=== PATIENT | female | born 1960 | race Two or more races ===

== ENCOUNTER 2024-07-29 08:48 | Day surgery (SDC) | payer MEDICAID, SELFPAY ==
--- NOTE | 2024-07-28 06:49 | EKG_ITS ---
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
[2024-07-28 08:31] VITALS: BMI 33.3
[2024-07-28 10:19] LABS: Basophils % (Auto) 1 % (0-2.5); Eosinophils # (Auto) 0.1 Thou/mm3 (0.0-0.5); Eosinophils % (Auto) 3 % (0-10); Hematocrit 41.4 % (36.0-46.0); Hemoglobin 13.7 g/dL (12.0-16.0); Immature Granulocytes % (Auto) 0 % (0-0); Immature Granulocytes Auto 0.01 Thou/mm3 (0.00-0.00); Lymphocytes # (Auto) 1.9 Thou/mm3 (1.0-4.8); Lymphocytes % (Auto) 37 % (10-50); Mean Corpuscular HGB Conc 33.1 g/dl (31.0-37.0); Mean Corpuscular Hemoglobin 30.4 pg (25.0-35.0); Mean Corpuscular Volume 92 fL (80-100); Monocytes # (Auto) 0.4 Thou/mm3 (0.0-0.8); Monocytes % (Auto) 8 % (0-12); Neutrophils # (Auto) 2.7 Thou/mm3 (1.8-7.7); Neutrophils % (Auto) 51 % (37-80); Nucleated Red Blood Cell % 0 /100 WBC (0); Platelet Count 220 Thou/mm3 (140-440); RDW Standard Deviation 45.5 fL (36.4-46.3); Red Blood Count 4.51 Miln/mm3 (4.00-5.20); White Blood Count 5.2 Thou/mm3 (3.6-11.0)
[2024-07-28 10:27] LABS: Alanine Aminotransferase 156 U/L (10-49); Albumin, Serum 4.2 gm/dL (3.4-4.8); Albumin/Globulin Ratio 1.6 (1.2-2.2); Alkaline Phosphatase 77 U/L (46-116); Anion Gap 6 (7-16); Aspartate Amino Transferase 76 U/L (0-34); BUN/Creatinine Ratio 10 Ratio (12-20); Bilirubin,Total 0.8 mg/dL (0.3-1.2); Blood Urea Nitrogen 8 mg/dL (9-23); Calcium 9.1 mg/dL (8.3-10.6); Calcium (Corrected) 9.1 mg/dL (8.5-10.1); Carbon Dioxide 28.8 mMol/L (20.0-31.0); Chloride 106 mMol/L (98-107); Creatinine (Component) 0.8 mg/dL (0.6-1.3); Estimated Creatinine Clearance 67.1 mL/min (>60); Globulin 2.6 gm/dL (2.3-3.5); Glucose 93 mg/dL (74-106); Osmolality,Calculated 279 (275-295); Partial Thromboplastin Time 26.8 Seconds (22.0-36.0); Potassium 4.2 mMol/L (3.4-5.1); Sodium 141 mMol/L (136-145); Total Protein 6.8 gm/dL (5.7-8.2); eGFR > 60 See Note
[2024-07-29] VITALS (8 sets, daily range): BP systolic 139–173; BP diastolic 68–92; PULSE 57–63; RESP 14–20; TEMP 36.3–36.8; O2SAT 96–100; BMI 33.4
--- NOTE | 2024-07-29 10:35 | PD.SUROPNT ---
Date of Procedure 07/29/24 Pre Op Diagnosis Symptomatic varicose veins right lower extremity Post Op Diagnosis Same as preop diagnosis Procedure Varicose vein excisions right lower extremity Findings All marked varicose veins were either removed or disrupted Procedure Description With the patient standing in the preop area all varicose veins to removed were carefully marked with a sharpie pen. The patient was then brought to the operating room and general anesthesia was induced. The varicose veins were removed by making a small skin clarence in the marked areas with a #11 blade then bluntly enlarging the incision with a mosquito clamp and sequentially excising or disrupting the veins. When all marked varicose veins were either removed or disrupted hemostasis was obtained and the wounds, the leg was washed, cleaned and Steri-Strips were applied to the incisions. Sterile dressing of gauze and Kerlix was applied followed by an Jesus wrap. The patient woke up from anesthesia was moved to recovery in stable condition. 39 incisions were used to excise the veins Anesthesia other (Laryngeal mask anesthesia) Pathology / specimen Other (Right leg varicose veins) Estimated Blood Loss 100 Condition Stable Disposition PACU Surgeon Edison Frank MD Surgical Staff Operation Date: 07/29/24 10:00 Case Staff Anesthesiologist: Jhon Zhang RN First Assistant: Conchita Felix
--- NOTE | 2024-07-29 10:42 | SUR.PHASEI ---
1042 Patient arrived to recovery resting comfortably in [facility], on oxygen 3L via nasal cannula, drowsy and talking with staff, breathing unlabored, vital signs stable, dressing intact to right lower extremity; steri-strips, abd, kerlix roll, juan miguel wraps, no bleeding noted, bilateral dorsalis pedis pulses present when palpated, patient has good circulation to right lower extremity; skin color normal for patient and warm to touch, report received from Dr. Zhang/Kian PALACIO and Scarlett IRBY
--- NOTE | 2024-07-29 11:55 | SUR.PHASEII ---
1155 Patient meets discharge criteria from recovery, awake and alert, breathing unlabored, vital signs stable, denies pain, dressing intact; no bleeding noted, voided in the restroom prior to discharge, drinking 7up; denies nausea, assisted with dressing into her clothing by her daughter, discharge instructions given to patient and patients daughter with the assistance of the telephone track layer head Raquel ID#[id number], daughter signed discharge instructions. Patient given all her belongings prior to discharge, transported via wheelchair and left in a private vehicle.
== END 2024-07-29 11:55 | disposition home or self-care (01) ==
PROVIDERS: PCP Family Medicine; Referring Provider Surgery Vascular Surgery; Visit Provider Surgery Vascular Surgery
PROC: (CPT 36475; principal; 2024-07-29 09:45)
DX: I83.811 Varicose veins of right lower extremity with pain (principal); Z01.810 Encounter for preprocedural cardiovascular examination
CPT/HCPCS: 37765; 37766; 36415; 80053; 85025; 85610; 85730; 93005; A4217; C1894; J0131; J1100; J2250; J2405; J2704; J2765; J3010; J7050